=== PATIENT | male | born 1945 | race Hispanic/Latino ===

== ENCOUNTER → 2020-04-21 | Outpatient (CLI) | payer OTHER | END | disposition home or self-care (01) | LOC: SHCH 15:48 | PROVIDERS: ATTEND Internal Medicine Cardiovascular Disease | DX: I48.0 Paroxysmal atrial fibrillation (principal); R00.0 Tachycardia, unspecified | CPT/HCPCS: 93306; 93356 ==

== ENCOUNTER → 2020-10-22 | Outpatient (CLI) | payer OTHER | END | disposition home or self-care (01) | LOC: SHCH 12:45 | PROVIDERS: ATTEND Internal Medicine Cardiovascular Disease | DX: I87.2 Venous insufficiency (chronic) (peripheral) (principal); I73.9 Peripheral vascular disease, unspecified | CPT/HCPCS: 93925; 93970 ==

== ENCOUNTER 2024-12-19 11:21 | Emergency (ER) | payer OTHER ==
[~2024-12-19] VITALS: Ht 170.2 cm; Wt 104.3 kg
[~2024-12-19 11:21] MED LIST: AMLO-257 PO; APIX5TAB PO; HYDR-4060 PO; LEVO25CA5 PO; LISI40TA15 PO; METO25TA6 PO
--- NOTE | 2024-12-19 11:40 | ERN ---
ED Note History of Present Illness Stated Complaint: SYNCOPE Chief Complaint: Syncope Time Seen by MD: 11:27 Dictation: PATIENT IS AN 79-YEAR-OLD MALE COMING IN WITH HIS DAUGHTER FROM THE [facility]. HE HAS TWO COMPLAINTS. FIRST COMPLAINT IS HE HAD A S YNCOPAL EPISODE ON MONDAY FELL AND WAS ON THE GROUND AT HOME. HE STATES HE MIGHT HAVE HAD LOC, HIS HAD TO CALL A NEIGHBOR WHO CAME OVER TO HELP AND CYST HIM INTO THE BED. HE DID NOT GO TO THE HOSPITAL AT THAT TIME. NO BLOOD THINNERS. HE IS HAVING RIGHT KNEE AND TIBIA PAIN WITH SWELLING ERYTHEMA. HE STATES HE HAS HAD CHRONIC RIGHT KNEE PAIN SINCE A TOTAL KNEE REPLACEMENT BY DR. NICHOLSON TWO YEARS AGO. DISTAL NEUROVASCULAR CMS INTACT. NO SPINE PAIN NO BACK PAIN. SHORTENING OR ROTATION OF EITHER EXTREMITY NIH IS 0 IN TRIAGE Allergies: Coded Allergies: No Known Drug Allergies (Verified Allergy, Unknown, 07/19/21) hydrochlorothiazide (Unverified Allergy, Unknown, 07/20/21) Home Meds Active Scripts Hydrocodone/Acetaminophen (Hydrocodon-Acetaminophen 5-325) 1 Each Tablet, 1-2 EACH PO Q6HPRN PRN for ACUTE POST-OP PAIN (G89.18), #56 TAB 0 Refills Prov:FITO NICHOLSON MD 07/23/21 Reported Medications Levothyroxine Sodium (Levothyroxine) 25 Mcg Capsule, 25 MCG PO HS, CAP 07/20/21 Apixaban (Eliquis) 5 Mg Tablet, 5 MG PO BID, TAB 07/20/21 Metoprolol Tartrate (Metoprolol Tartrate) 25 Mg Tablet, 12.5 MG PO BID, TAB 07/20/21 Amlodipine Besylate (Amlodipine Besylate) 5 Mg Tablet, 5 MG PO DAILY, TAB 07/20/21 Lisinopril (Lisinopril) 40 Mg Tablet, 40 MG PO DAILY, TAB 07/20/21 Past Medical History Past Medical History: A-Fib, High Cholesterol, Hypertension, Hypothyroid Surgical History: Other Surgical History Other: right knee replacement RN Note Reviewed/Agreed w/PFSH: Yes Review of System Dictation CONSTITUTIONAL: NEGATIVE EXCEPT FOR HPI HEAD/FACE: NEGATIVE EXCEPT FOR HPI EENT: NEGATIVE EXCEPT FOR HPI RESPIRATORY: NEGATIVE EXCEPT FOR HPI GASTROINTESTINAL/ABDOMINAL: NEGATIVE EXCEPT FOR HPI GENITOURINARY: NEGATIVE EXCEPT FOR HPI MUSCULOSKELETAL: NEGATIVE EXCEPT FOR HPI RIGHT LOWER LEG SWELLING TENDERNESS TO INCLUDE KNEE INTEGUMENTARY: NEGATIVE EXCEPT FOR HPI NEUROLOGICAL/PSYCH: NEGATIVE EXCEPT FOR HPI HEMATOLOGIC/LYMPHATIC: NEGATIVE EXCEPT FOR HPI ALL SYSTEMS NEGATIVE, EXCEPT NOTED ABOVE. 13 POINT REVIEW OF SYSTEMS ASSESSED AND ALL NEGATIVE EXCEPT FOR ABOVE. Initial Vital Sign VS Vital Signs Date Time Temp Pulse Resp B/P (MAP) Pulse Ox O2 Delivery O2 Flow Rate FiO2 12/19/24 11:22 98.2 112 18 145/89 97 Room Air 12/19/24 11:28 0 21 Physical Exam Dictation VITAL SIGNS REVIEWED GENERAL APPEARANCE: ALERT, ORIENTED X 3, MILD ACUTE DISTRESS, WELL DEVELOPED, NOURISHED. HEAD AND FACE: NON-TRAUMATIC. EYES: PERRL, PINK CONJUNCTIVAS, EYELID NO TRAUMA, ANTERIOR CHAMBER WITH ARCUS SENILIS. EARS: PINNAS INTACT AND NO SIGNS OF TRAUMA OR ERYTHEMA EAR CANALS CLEAR AND NO DISCHARGE TM NO ERYTHEMA NOSE: NO DISCHARGE, NO BLEEDING. OROPHARYNX: MOUTH NORMAL, TONGUE PINK, PHARYNX CLEAR,NO ERYTHEMA, TONSILS NO EXUDATES, NO ABSCESSES NOTED, MUCOUS MEMBRANE MOIST NECK: SUPPLE, NON-TENDER, NO THYROMEGALY, NO MASSES, NO JVD, NO BRUITS BREAST:DEFERRED CHEST:NO TENDERNESS, NO CREPITUS, NO PARADOXICAL MOVEMENT, NO RETRACTIONS LUNGS:CLEAR, WELL-VENTILATED, SYMMETRIC, NO RALES, NO WHEEZING, NO RHONCHI, NO STRIDOR, GOOD BREATH SOUNDS BILATERALLY HEART: REGULAR RATE, REGULAR RHYTHM, NO MURMUR, NO GALLOPS VASCULAR: NO PERIPHERAL EDEMA, ABDOMEN: SOFT, POSITIVE BOWEL SOUNDS, NONDISTENDED, NO GUARDING, NONTENDER, NO REBOUND, NO MASSES NO HEPATOMEGALY, NO SPLENOMEGALY, NO MARTINEZ'S SIGN, NO HERNIAS. RECTAL: DEFERRED GENITAL: DEFERRED NEUROLOGICAL: NORMAL SPEECH, MOTOR FUNCTION INTACT, SENSORY FUNCTION INTACT BASELINE PER DAUGHTER MUSCULOSKELETAL: NECK NONTENDER, FULL RANGE OF MOTION, BACK NONTENDER, FULL RANGE OF MOTION, EXTREMITIES: TENDERNESS WITH MILD ERYTHEMA TO DISTAL RIGHT LEG FROM KNEE DOWN. MILD POSTERIOR TIBIAL TENDERNESS DISTAL NEUROVASCULAR CMS INTACT SKIN: COLOR PINK, CHRONIC SKIN AND COLOR CHANGES TO DISTAL RIGHT LEG SECONDARY TO VENOUS INSUFFICIENCY. PHLEBITIS NOTED TO RIGHT MEDIAL CALF KNEE AREA. LYMPHATIC: DEFERRED Results (Laboratory/Radiology) Laboratory/Radiology Laboratory Tests Test 12/19/24 11:48 White Blood Count 6.4 K/uL (4.8-10.8) Red Blood Count 4.57 MIL/uL (4.50-6.20) Hemoglobin 15.1 g/dL (14.0-18.0) Hematocrit 44.7 % (42-54) Mean Corpuscular Volume 97.8 fL (79-99) Mean Corpuscular Hemoglobin 33.0 pg (27.0-33.0) Mean Corpuscular Hemoglobin Concent 33.8 g/dL (32.0-36.0) Red Cell Distribution Width 13.4 % (11.0-15.5) Platelet Count 212 K/uL (130-400) Mean Platelet Volume 9.5 fL (7.5-10.5) Immature Granulocyte % (Auto) 1.1 % (0-1) H Neutrophils (%) (Auto) 67.3 % (40.0-77.0) Lymphocytes (%) (Auto) 20.9 % (21.0-51.0) L Monocytes (%) (Auto) 7.9 % (3.0-13.0) Eosinophils (%) (Auto) 1.9 % (0.0-8.0) Basophils (%) (Auto) 0.9 % (0.0-5.0) Neutrophils # (Auto) 4.3 K/uL (1.8-7.7) Lymphocytes # (Auto) 1.3 K/uL (1.0-4.8) Monocytes # (Auto) 0.5 K/uL (0.1-1.0) Eosinophils # (Auto) 0.12 K/uL (0.00-0.70) Basophils # (Auto) 0.06 K/uL (0.00-0.20) Absolute Immature Granulocyte (auto 0.07 K/uL (0-1) Nucleated Red Blood Cells 0.0 % (0.0-0.19) Sodium Level 138 mmol/L (136-145) Potassium Level 4.1 mmol/L (3.5-5.1) Chloride Level 104 mmol/L (101-111) Carbon Dioxide Level 26 mmol/L (21-32) Blood Urea Nitrogen 17 mg/dL (7-18) Creatinine 1.0 mg/dL (0.5-1.3) Glomerular Filtration Rate Calc 76 mL/min (>90) Random Glucose 115 mg/dL (70-105) H Total Calcium 9.0 mg/dL (8.5-10.1) Magnesium Level 2.10 mg/dL (1.80-2.40) Troponin I High Sensitivity 5 ng/L (4-75) B-Type Natriuretic Peptide 98 pg/mL (0-100) DOMINIK: SYNCOPAL EPISODE ON MONDAY. RULE OUT CVA ORDERING PHYSICIAN: LARISSA VILLAREAL NP PROCEDURE: HEAD WO - CT HEAD/BRAIN W/O CONTRAST Exam: NONCONTRAST CT BRAIN REASON: SYNCOPAL EPISODE ON MONDAY. RULE OUT CVA. COMPARISON: None. TECHNIQUE: Images are obtained from vertex to the skull base. The exam was performed without IV contrast. FINDINGS: There is normal appearing brain parenchyma. There are no focal mass lesions. There is is no evidence of intracranial hemorrhage or acute stroke. Ventricles and sulci appear normal. Posterior fossa and brainstem structures are unremarkable. Paranasal sinuses and remaining extracranial soft tissues appear normal as well.There is global atrophy. IMPRESSION: No acute intracranial process Global atrophy CT was performed with one or more following dose reduction techniques: automated exposure control, adjustment of the mA and kv according to patient's size, or use of a iterative reconstruction technique. KNEE 3VWS RT REASON: RIGHT KNEE PAIN STATUS POST FALL MONDAY TECHNIQUE: 3 views were obtained. FINDINGS: There is no evidence of fracture or dislocation. There is a right knee arthroplasty which appears to be anatomic in position. There is no joint effusion. The soft tissues appear unremarkable. There is no evidence of a radiopaque foreign body. There is atherosclerotic change of the popliteal artery and trifurcation vessels with calcified plaque. IMPRESSION: No acute findings. Status post right knee arthroplasty which appears to be in anatomical position. EXAM: CR right Tibia and fibula, 4 View. CLINICAL HISTORY: FALL MONDAY WITH RIGHT TIBIAL PAIN COMPARISON: None provided. FINDINGS: BONES: No acute fracture or aggressive appearing osseous lesion. JOINTS: No dislocation. Cemented right total knee arthroplasty is in near anatomic alignment. No displaced fracture appreciated. SOFT TISSUES: The soft tissues are unremarkable. IMPRESSION: 1. No acute osseous injury. /[place] EXAM: US for Deep Venous Thrombosis, right Lower Extremity. CLINICAL HISTORY: Leg Pain and Swelling TECHNIQUE: Real-time ultrasound scan of the veins of the right lower extremity with color Doppler flow, spectral waveform analysis and compression. COMPARISON: None provided. FINDINGS: DEEP VEINS: The common femoral, superficial femoral, and popliteal veins are echolucent and compressible. There is normal color Doppler flow throughout. The visualized calf veins appear patent. SOFT TISSUES: No popliteal fossa cyst or other abnormalities. IMPRESSION: 1. No deep venous thrombosis in the right lower extremity. /[place] Labs Reviewed?: Yes EKG Comment: EKG atrial fibrillation ventricular rate 100/right bundle branch block/left ventricular hypertrophy ED Course ED Course Orders Procedure Category Date Status Time Ct Head/Brain W/O CT 12/19/24 Resulted Contrast 11:35 Us Venous Doppler US 12/19/24 Resulted Unilateral 11:35 Tibia/Fibula 2vws Rt RAD 12/19/24 Resulted 11:35 Cbc With Differential LAB 12/19/24 Complete 11:35 12 Lead Ekg Tracing- EKG 12/19/24 Resulted Technical 11:35 Magnesium LAB 12/19/24 Complete 11:35 Troponin I High LAB 12/19/24 Complete Sensitivity 11:35 Basic Metabolic Panel LAB 12/19/24 Complete 11:35 B-Type Natriuretic LAB 12/19/24 Complete Peptide 11:35 Knee 3vws Rt RAD 12/19/24 Resulted 11:35 Acetaminophen With PHA 12/19/24 Complete Codeine (Tylenol-Code 12:00 Current Medications Medications (Trade) Dose Ordered Sig/Dianelys Route PRN Reason Start Time Stop Time Status Last Admin Dose Admin Acetaminophen/ Codeine Phosphate (TYLenol-coDEINE TAB) 2 tab ONCE ONCE PO 12/19/24 12:00 12/19/24 12:01 DC Vital Signs Date Time Temp Pulse Resp B/P (MAP) Pulse Ox O2 Delivery O2 Flow Rate FiO2 12/19/24 11:28 98.2 112 18 145/89 97 Room Air* 0 21 12/19/24 11:22 98.2 112 18 145/89 97 Room Air 1532/SPOKE WITH PATIENT AT LENGTH REGARDING HIS LAB FINDINGS. HE IS AWARE THAT THERE WAS NO CVA THERE WAS NO INFECTION THERE WAS NO DVT. HE DOES HAVE A SUPERFICIAL THROMBOPHLEBITIS THAT WE WILL BE TREATED WITH CEPHALEXIN AND IBUPROFEN PATIENT GIVEN INSTRUCTIONS ON ELEVATING RIGHT LEG MUCH POSSIBLE DURING THE DAY FOLLOW UP WITH HIS PRIMARY CARE DOCTOR. ALL QUESTIONS ANSWERED FOR HIM IN HIS DAUGHTER AT BEDSIDE. HEART Score Response (Comments) Value Age: > 65yrs (+2) 2 Risk Factors: 1-2 risk factors (+1) 1 Initial Troponin: Normal limit (0) 0 Total 3 Medical Decision Making MDM MDM: DIFFERENTIAL DIAGNOSIS: CVA/SUBDURAL HEMATOMA/BLEED/ACS/AMI/ELECTROLYTE IMBALANCE/DEHYDRATION/DVT/RIGHT LOWER EXTREMITY FRACTURE/PHLEBITIS RATIONALE: TESTS CONSIDERED AND ORDERED SECONDARY TO SHARED DECISION MAKING INCLUDE: RADIOLOGY/LABS/EKG PREVIOUS OUTSIDE RECORDS REVIEWED: OLD ER VISITS. RISK OF COMPLICATION AND/OR MORBIDITY OR MORTALITY OF PATIENT MANAGEMENT: NONE MEDICATIONS-PER MEDICATION RECONCILIATION NEED FOR HOSPITALIZATION: PATIENT DOES NOT MEET CRITERIA FOR HOSPITALIZATION. NONE NEED FOR EMERGENCY MAJOR/MINOR SURGERY: NO THERE ARE NO SOCIAL CONCERNS WITH THIS PATIENT. PRESCRIPTION DRUG MANAGEMENT KEFLEX/IBUPROFEN PRESCRIPTIONS WILL INCLUDE SYMPTOMATIC CARE PATIENT'S PRIOR EXTERNAL MEDICAL RECORDS FROM OTHER ER VISITS WERE REVIEWED BY ME INDICATED. PRIOR TESTING AND RESULTS FROM PREVIOUS VISITS WERE REVIEWED. PRIOR TESTS WERE TAKEN INTO ACCOUNT WITH MEDICAL DECISION MAKING AND RESOURCE UTILIZATION, INDEPENDENT HISTORIAN/HISTORIANS WERE USED TO OBTAIN COMPLETE MEDICAL HISTORY. I INDEPENDENTLY INTERPRETED THE TEST THAT WERE PERFORMED, RESULTS WERE REVIEWED BY ME AND CONSIDERED FINDINGS ON RADIOLOGY IF ORDERED. MEDICAL MANAGEMENT AND EXAMINATION INTERPRETATION DISCUSSIONS WERE HAD BY ME WITH OTHER QUALIFIED HEALTHCARE PROFESSIONALS INDICATED FOR THE PATIENT'S CARE. DX & DISP Disposition: Discharge Departure Impression: Primary Impression: Thrombophlebitis of leg, right Additional Impressions: Venous insufficiency of right lower extremity, Hyperglycemia, Vasovagal syncope Condition: Stable Scripts Ibuprofen (Ibuprofen 800 mg Tab) 800 Mg Tab 800 MG PO Q8H PRN for fever or pain, #30 TAB 0 Refills Prov: LARISSA VILLAREAL NP 12/19/24 Cephalexin (Cephalexin) 500 Mg Tablet 1 TAB PO QID for 7 Days, #28 TAB 0 Refills Prov: LARISSA VILLAREAL CORPORATE REAL ESTATE SPECIALIST 12/19/24 Additional Instructions: FOLLOW-UP WITH PRIMARY CARE PROVIDER IN 1 TO 2 DAYS. TAKE MEDICATIONS DIRECTED HERE IN THE EMERGENCY ROOM. OKAY TO CONTINUE HOME MEDICATIONS UNLESS OTHERWISE DISCUSSED DURING YOUR VISIT IN THE EMERGENCY ROOM TODAY. RETURN TO YOUR NEAREST EMERGENCY ROOM IF SYMPTOMS WORSEN OR IF THERE IS NO IMPROVEMENT. CALL 911 IF YOU NEED IMMEDIATE ASSISTANCE. TAKE TYLENOL OR MOTRIN LCIL-YVN-LEHDTOO NEEDED AND IF NO CONTRAINDICATIONS ARE PRESENT. INCREASE ORAL HYDRATION. A WOUND CULTURE OR URINE CULTURE WAS ORDERED HERE IN THE EMERGENCY ROOM DEPARTMENT PLEASE FOLLOW-UP WITH PRIMARY CARE PROVIDER AND ADVISE THEM TO GET REPEAT PORTS FROM OUR FACILITY. IF YOU HAD ANY BRIANA WRAP/SPLINTS THAT WERE APPLIED HERE, PLEASE DO NOT REMOVE THEM UNTIL YOU SEE YOUR PRIMARY CARE OR SPECIALTY. WARM COMPRESSES TO SWELLING ON RIGHT LOWER LEG THREE TO 4 TIMES A DAY. KEEP RIGHT LEG ELEVATED MUCH POSSIBLE DURING THE DAY. TAKE ANTIBIOTICS DIRECTED UNTIL GONE. TAKE IBUPROFEN EVERY 8 HOURS WITH FOOD FOR THE NEXT TWO DAYS. SEE YOUR PRIMARY CARE DOCTOR FOR FOLLOW UP. DIET AND ACTIVITY TOLERATED OTHERWISE Referrals: CHRISTOPHER LUEVANO (PCP) Time of Disposition: 15:35 I have reviewed the case, and I agree with, Diagnosis and Plan LARISSA VILLAREAL NP Dec 19, 2024 11:40
[2024-12-19 11:56] LABS: IMMATURE GRANULOCYTE ABSOLUTE 0.07 K/uL (0-1); NUCLEATED RED BLOOD CELLS 0.0 % (0.0-0.19); PLATELET COUNT (AUTO) 212 K/uL (130-400); RED BLOOD CELL COUNT(AUTO) 4.57 MIL/uL (4.50-6.20); RED CELL DISTRIBUTION WIDTH 13.4 % (11.0-15.5); WHITE BLOOD COUNT (AUTO) 6.4 K/uL (4.8-10.8)
[2024-12-19 12:11] LABS: CREATININE 1.0 mg/dL (0.5-1.3); GLOMERULAR FILTR. RATE CALC 76.0 mL/min (>90); GLUCOSE,RANDOM 115.0 mg/dL (70-105); SODIUM SERUM 138.0 mmol/L (136-145); UREA NITROGEN, BLOOD 17.0 mg/dL (7-18)
--- NOTE | 2024-12-19 12:42 | HMCIMG ---
EXAM: US for Deep Venous Thrombosis, right Lower Extremity. CLINICAL HISTORY: Leg Pain and Swelling TECHNIQUE: Real-time ultrasound scan of the veins of the right lower extremity with color Doppler flow, spectral waveform analysis and compression. COMPARISON: None provided. FINDINGS: DEEP VEINS: The common femoral, superficial femoral, and popliteal veins are echolucent and compressible. There is normal color Doppler flow throughout. The visualized calf veins appear patent. SOFT TISSUES: No popliteal fossa cyst or other abnormalities. IMPRESSION: 1. No deep venous thrombosis in the right lower extremity. /[place]
--- NOTE | 2024-12-19 12:44 | EKG ---
[facility] Test Date: 2024-12-19 Test Time: 12:40:42 Pat Name: PIPE MEJIA Department: 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
--- NOTE | 2024-12-19 13:13 | HMCIMG ---
KNEE 3VWS RT REASON: RIGHT KNEE PAIN STATUS POST FALL MONDAY TECHNIQUE: 3 views were obtained. FINDINGS: There is no evidence of fracture or dislocation. There is a right knee arthroplasty which appears to be anatomic in position. There is no joint effusion. The soft tissues appear unremarkable. There is no evidence of a radiopaque foreign body. There is atherosclerotic change of the popliteal artery and trifurcation vessels with calcified plaque. IMPRESSION: No acute findings. Status post right knee arthroplasty which appears to be in anatomical position.
--- NOTE | 2024-12-19 13:32 | HMCIMG ---
EXAM: CR right Tibia and fibula, 4 View. CLINICAL HISTORY: FALL MONDAY WITH RIGHT TIBIAL PAIN COMPARISON: None provided. FINDINGS: BONES: No acute fracture or aggressive appearing osseous lesion. JOINTS: No dislocation. Cemented right total knee arthroplasty is in near anatomic alignment. No displaced fracture appreciated. SOFT TISSUES: The soft tissues are unremarkable. IMPRESSION: 1. No acute osseous injury. /[place]
--- NOTE | 2024-12-19 13:55 | HMCIMG ---
Exam: NONCONTRAST CT BRAIN REASON: SYNCOPAL EPISODE ON MONDAY. RULE OUT CVA. COMPARISON: None. TECHNIQUE: Images are obtained from vertex to the skull base. The exam was performed without IV contrast. FINDINGS: There is normal appearing brain parenchyma. There are no focal mass lesions. There is is no evidence of intracranial hemorrhage or acute stroke. Ventricles and sulci appear normal. Posterior fossa and brainstem structures are unremarkable. Paranasal sinuses and remaining extracranial soft tissues appear normal as well.There is global atrophy. IMPRESSION: No acute intracranial process Global atrophy CT was performed with one or more following dose reduction techniques: automated exposure control, adjustment of the mA and kv according to patient's size, or use of a iterative reconstruction technique.
[2024-12-19] MEDS ORDERED: IBUP-2077 PO (15:36)
[2024-12-19] MEDS ORDERED: CEPH500T PO (15:36)
[2024-12-19 17:01] VITALS: BP 137/79; PULSE 75; RESP 18; TEMP 98.4; O2SAT 98
== END 2024-12-19 17:36 | disposition home or self-care (01) ==
LOC: EDH 11:21
DX: I80.3 Phlebitis and thrombophlebitis of lower extremities, unspecified (principal); I87.2 Venous insufficiency (chronic) (peripheral); R73.9 Hyperglycemia, unspecified; R55 Syncope and collapse; I48.91 Unspecified atrial fibrillation; E03.9 Hypothyroidism, unspecified; E78.00 Pure hypercholesterolemia, unspecified; I10 Essential (primary) hypertension; Z79.01 Long term (current) use of anticoagulants; Z79.890 Hormone replacement therapy; Z79.899 Other long term (current) drug therapy; Z96.651 Presence of right artificial knee joint
CPT/HCPCS: 99285; 70450; 93971; 83735; 84484; 80048; 83880; 85025; 36415; 73562; 73590; 96372; 93005; J1885